=== PATIENT | female | born 1990 | race Caucasian/White ===

== ENCOUNTER 2019-05-29 10:28 | Outpatient (CLI) | payer MEDICAID ==
--- NOTE | 2019-05-29 14:09 | ULT ---
PELVIC ULTRASOUND: Date: 05/29/19 HISTORY: 28-year-old female, assess first trimester . TECHNIQUE: Multiplanar Mcdaniels scale sonographic imaging of the pelvis obtained with transabdominal imaging. The ov ron are assessed with color flow and spectral analysis. FINDINGS: The uterus measures 9.7 x 5.5 x 8.9 cm. The left ovary could not be visualized. Right ovary measures 2.5 x 1.9 x 2.6 cm and demonstrates normal blood flow. There is an intrauterine gestational sac present. A pole and a yolk sac are noted. heart rate is 161 beats/minute. There is no free fluid seen in the pelvis. There is a probable small subchorionic hemorrhage noted to the right and to the left of midline measu ring in the 7.0 mm and 1.6 cm range, respectively. There is a mildly complex right ovarian cystic lesion measuring 1.4 x 1.0 cm. Jensen-rump length is 1.4 cm, correlating with a 7 week/6 day gestation. Gestational sac diameter is 3 .4 cm, correlating with an 8 week/6 day gestation. Average age based on ultrasound is 8 weeks/3 days, with estimated date of delivery on 01/05/2020. IMPRESSION: Single intrauterine gestation as detailed above. Small subchorionic hemorrhage noted. POS: OFF
== END 2019-05-29 10:29 | disposition home or self-care (01) ==
LOC: BICULT 10:28
PROVIDERS: ATTEND Nurse Practitioner
DX: O09.91 Supervision of high risk pregnancy, unspecified, first trimester (principal); O20.9 Hemorrhage in early pregnancy, unspecified; Z3A.08 8 weeks gestation of pregnancy
CPT/HCPCS: 76856; 93976

== ENCOUNTER 2019-06-04 12:36 | Emergency (ER) | payer MEDICAID ==
[2019-06-04 13:52] LABS: #Eosinphils 0.1 thou/uL (0.0-0.7); #Lymphocytes 2.2 thou/uL (1.20-3.40); #Monocytes 1.3 thou/uL (0.11-0.59); #Neutrophils 10.3 thou/uL (1.40-6.50); %Basophils 0.3 % (0.0-1.0); %Eosinophils 0.9 % (0.0-10.0); %Lymphocytes 15.5 % (21.0-51.0); %Monocytes 9.3 % (0.0-10.0); Hemoglobin 14.4 g/dL (12.0-16.0); Mean Corpuscular HGB CONC 34.1 g/dL (32.0-36.0); Mean Corpuscular Hemoglobin 32.2 pg (27.0-31.0); Mean Corpuscular Volume 94.4 fL (78.0-98.0); Mean Platelet Volume 7.4 fL (7.4-10.4); Platelet Count 215 thou/uL (130-400); RBC Distribution Width 12.8 % (11.5-14.5); Red Blood Cell (RBC) Count 4.48 mill/uL (4.20-5.40); White Blood Cell (WBC) Count 13.9 thou/uL (4.8-10.8)
[2019-06-04 14:15] LABS: ALT (SGPT) 14 U/L (8-55); AST (SGOT) 14 U/L (5-34); Albumin 4.4 g/dL (3.5-5.0); Alkaline Phosphatase 48 U/L (40-150); Anion Gap 11 mmol/L (10-20); BUN (Urea Nitrogen) 7 mg/dL (7.0-18.7); Bilirubin, Total 0.3 mg/dL (0.2-1.2); Calc. Creatinine Clearance 0 mL/min (70-130); Calcium 9.6 mg/dL (7.8-10.44); Carbon Dioxide 26 mmol/L (22-29); Chloride 101 mmol/L (98-107); Estimated GFR-MDRD Greater than 90; Globulin 2.9 g/dL (2.4-3.5); Glucose 91 mg/dL (70-105); Protein, Total 7.3 g/dL (6.0-8.3); Sodium 134 mmol/L (136-145)
[2019-06-04 14:19] LABS: Bacteria/HPF 3+ HPF (None Seen); Bilirubin Negative (Negative); Blood, Urine 2+ (Negative); Clarity Clear (Clear); Glucose, Urine (Dipstick) Normal (Negative); Leukocyte Negative Leu/uL (Negative); Mucous/LPF 1+ LPF (<2+); Nitrite Negative (Negative); Protein, Urine (Dipstick) 20 mg/dL (Neg-Trace); Squamous Epithelial 0-3 HPF (0-3); Urobilinogen Normal mg/dL (Less than 2); WBC/HPF 0-3 HPF (0-3)
[2019-06-04 14:20] LABS: BHCG - Serum POSITIVE (NEGATIVE); Pregs Control Background? CLEAR/WHITE (CLR/WHITE); Pregs Control Bar Appear? YES (CONTROL BAR)
--- NOTE | 2019-06-04 14:29 | ULT ---
Ultrasound early obstetrical: HISTORY: 28-year-old female with first trimester vaginal bleeding FINDINGS: Intrauterine gestational sac. Yolk sac present. Embryonic pole present. What Cheer-rump length: 2.2 cm, 8 weeks 6 days. heart rate: 162 bpm No definite subchorionic hemorrhage. No free fluid in the cul-de-sac. Right ovary unremarkable. Left ovary not visualized. IMPRESSION: Live first trimester intrauterine gestation estimated to be 8 weeks 6 days gestational age. No defini te abnormality identified.
== END 2019-06-04 17:05 | disposition home or self-care (01) ==
LOC: ERS 12:36
DX: O20.9 Hemorrhage in early pregnancy, unspecified (principal); O99.341 Other mental disorders complicating pregnancy, first trimester; Z79.899 Other long term (current) drug therapy
CPT/HCPCS: 36415; 76856; 80053; 81003; 81015; 84702; 84703; 85025; 86900; 86901; 90384; 93976; 96372

== ENCOUNTER 2019-08-19 13:35 | Outpatient (CLI) | payer MEDICAID ==
--- NOTE | 2019-08-19 14:52 | ULT ---
OB ULTRASOUND: HISTORY: anatomy and cervical length. FINDINGS: A single live intrauterine gestation is seen with measurements corresponding to an estimated gestatio nal age of 20 weeks 3 days and MOISE of 01/03/2020. The estimated weight measures 323 g or 11 oz 34th percentile by Hadlock criteria). BIOMETRY: BPD: 4.86 cm (20 weeks 5 days) HC: 18.20 cm (20 weeks 5 days) AC: 14.91 cm (20 weeks 2 days) FL: 3.06 cm (19 weeks 4 days) heart rate measures 147 beats per minute. JOSE EDUARDO measures 12.7 cm. Placenta is posterior and to th e right without placenta previa. Cervical length measures 2.9 cm. Three vessel cord, cord insertion, kidneys, bladder, stomach, four chambered heart, lateral chaka tricles, cerebellum, spine and upper and lower extremities are visualized without definite anom alies. The lips and nose are not visualized due to position. IMPRESSION: Single live intrauterine of 20 weeks' 3 days' estimated gestational age and an estimated da te of delivery of 01/03/2020. POS: OFF
== END 2019-08-19 13:36 | disposition home or self-care (01) ==
LOC: BICULT 13:35
PROVIDERS: ATTEND Obstetrics & Gynecology
DX: O09.92 Supervision of high risk pregnancy, unspecified, second trimester (principal); Z3A.20 20 weeks gestation of pregnancy
CPT/HCPCS: 76805

== ENCOUNTER 2019-10-27 08:53 | Outpatient (CLI) | payer MEDICAID ==
--- NOTE | 2019-10-27 11:16 | ULT ---
ULTRASOUND ABDOMEN COMPLETE: DATE: 10/27/2019. HISTORY: A 29-year-old female in third trimester presents with right upper quadrant abdominal pain. FINDINGS: The gallbladder has normal wall thickness and has no evidence of gallstones or sludge. The hepatic e chogenicity is normal. The kidneys have normal echogenicity, and there is no hydronephrosis. There is no splenomegaly. There is no abdominal aortic aneurysm. No free fluid is identified. The inferi or vena cava is visualized. The pancreas is visualized, although ultrasound is relatively insensitiv e for pancreatic pathology compared to CT and MRI. The common duct is not visualized. IMPRESSION: 1. Common bile duct not visualized. 2. Otherwise, negative. jn [] POS: CET
== END 2019-10-27 08:54 | disposition home or self-care (01) ==
LOC: SCSULT 08:53
PROVIDERS: ATTEND Advanced Practice Midwife
DX: R10.11 Right upper quadrant pain (principal)
CPT/HCPCS: 93975

== ENCOUNTER 2019-12-03 11:58 | Day surgery (SDC) | payer OTHER ==
[2019-12-03 12:42] VITALS: BMI 23.9
[2019-12-03] MEDS ORDERED: hydrALAZINE 20 MG/ML VIAL SLOW IVP PRN (13:41)
[2019-12-03] MEDS ORDERED: NIFEdipine 10 MG CAP ONE ×2 (13:44→14:36)
[2019-12-03] MEDS ORDERED: NIFEdipine 10 MG CAP PO PRN (14:51)
[2019-12-03] MEDS ORDERED: NIFEdipine 10 MG CAP PO SCH ×2 (14:51→15:00)
--- NOTE | 2019-12-03 17:06 | ER ---
DATE OF SERVICE: 12/03/2019 PRESENTING COMPLAINT: Right rib pain at 35 weeks gestation. HISTORY OF PRESENT ILLNESS: Ms. Holman is a 29-year-old G2, P0, due date 01/04, 35 weeks gestation, who sees Dr. Rojas Espinosa. She has an approximately 1 month history of right rib pain. She has been evaluated as an outpatient with gallbladder ultrasound, x-rays, and the patient was felt to have more musculoskeletal. She presents today with the same complaint. Upon presentation, she was noted to have uterine irritability with a cervical exam of 1, 75, and -3, cephalic, bag of water intact, and she was observed with p.o. hydration and Procardia per protocol. RESEARCH PROGRAMMER HISTORY: As noted, negative drug screen. The patient transferred at 28 weeks. PAST MEDICAL HISTORY: Significant for anxiety and depression. PAST SURGICAL HISTORY: Denies. ALLERGIES: NONE. MEDICATIONS: vitamins and fluoxetine. SOCIAL HISTORY: Denies tobacco, alcohol, or drug abuse. FAMILY HISTORY: Noncontributory. REVIEW OF SYSTEMS: Noncontributory. PHYSICAL EXAMINATION: VITAL SIGNS: White female, blood pressure 124/75, pulse 110, respirations 18, temperature 98.1. HEENT: Within normal limits. LUNGS: Clear to auscultation bilaterally. HEART: Regular rhythm. ABDOMEN: Soft and nontender. Occasional indelible contractions noted every 3 to 5 minutes upon presentation with fundal height of 35 cm. The patient's tenderness over her ribs is in the same location that has been noted before. No CVA tenderness is noted. EXTREMITIES: No clubbing, cyanosis, eczema, or edema. CERVICAL: Exam is noted. monitoring revealed the patient was not appreciating approximately every 3 to 5 minutes. She had received Procardia, contractions decreased in intensity and frequency. heart rate tracing was category I. Repeat cervical exam was not performed. The patient was discharged home with ER precautions for labor, rupture of membranes, and will keep scheduled follow up in [address] Espinosa. Job ID: [id number]
== END 2019-12-03 16:31 | disposition home or self-care (01) ==
LOC: L&D/OP 11:58
PROVIDERS: ATTEND Obstetrics & Gynecology
DX: O99.89 Other specified diseases and conditions complicating pregnancy, childbirth and the puerperium (principal); R07.81 Pleurodynia; O99.343 Other mental disorders complicating pregnancy, third trimester; F41.9 Anxiety disorder, unspecified; F32.9 Major depressive disorder, single episode, unspecified; Z3A.35 35 weeks gestation of pregnancy; Z79.899 Other long term (current) drug therapy
CPT/HCPCS: 99284

== ENCOUNTER 2019-12-29 06:00 | Inpatient (IN) | payer OTHER ==
--- NOTE | 2019-12-28 13:04 | PDOC.LDHP ---
Labor and Delivery H&P Chief complaint: scheduled section HPI: Pt is scheduled for primary CS for primary HSV outbreak at 36 weeks. Current gestational age (weeks): 39 Due date: 01/05/20 Grav: 2 Para: 0 Current complications: other (HSV) Abnormal US findings: No Current medications: iron, other (valtrex 1gm q day) Previous surgical history: other Allergies/Adverse Reactions: Allergies Allergy/AdvReac Type Severity Reaction Status Date / Time No Known Allergies Allergy Verified 12/03/19 12:41 Social history: none - Physical Exam Vital signs reviewed and normal: yes General: resting Heart: RRR Lungs: CTAB Abdomen: gravid Extremeties: no edema FHT: category 1 - OB Labs Blood type: A RH: negative Antibody Screen: negative HIV: negative RPR: negative HEPSAg: negative 1 hour GCT: positive 3 hour GTT: 3hr WNL GBS: negative Urine drug screen: negative Rubella: immune - Assessment L&D Assessment: scheduled primary section - Plan Plan: admit to L&D, informed consent obtained, anesthesia consult for pain management -: Scheduled 1CS for 1 HSV in the third trimester.
[2019-12-29 06:14] VITALS: BMI 26.2
[2019-12-29] MEDS ORDERED: Butorphanol Tartrate 1 MG/ML VIAL SLOW IVP PRN (06:25)
[2019-12-29] MEDS ORDERED: Promethazine HCl 25 MG/ML VIAL IM PRN ×3 (06:25→14:51)
[2019-12-29] MEDS ORDERED: Acetaminophen 500 MG TAB PO PRN (06:25)
[2019-12-29] MEDS ORDERED: Bicitra 30 ML UDCUP PO SCH (06:25)
[2019-12-29] MEDS ORDERED: CEFAZOLIN 2 GM in Premix Bag 1 BAG IVPB SCH (06:25)
[2019-12-29] MEDS ORDERED: Ondansetron PF 4 MG/2 ML Vial IVP PRN ×4 (06:25→14:51)
[2019-12-29] MEDS ORDERED: Lactated Ringer's 1,000 ML IV SCH (06:25)
[2019-12-29] MEDS ORDERED: hydrALAZINE 20 MG/ML VIAL SLOW IVP PRN ×2 (06:25→09:46)
[2019-12-29 06:46] LABS: Hemoglobin 14.2 g/dL (12.0-16.0); Mean Corpuscular Hemoglobin 33.2 pg (27.0-31.0); Mean Corpuscular Volume 94.9 fL (78.0-98.0); Mean Platelet Volume 9.3 fL (7.4-10.4); Platelet Count 165 thou/uL (130-400); Red Blood Cell (RBC) Count 4.29 mill/uL (4.20-5.40); White Blood Cell (WBC) Count 14.2 thou/uL (4.8-10.8)
[2019-12-29] MEDS ORDERED: MORPHINE 5 MG/10 ML PF VIAL ONE (07:26)
[2019-12-29] MEDS ORDERED: PHENYLEPHRINE-NS 100 MCG/ML 10 ML SYRINGE ONE (07:27)
[2019-12-29] MEDS ORDERED: Oxytocin 10 UNITS/ML VIAL ONE (07:27)
[2019-12-29] MEDS ORDERED: EPHEDRINE 25 MG/5 ML SYRINGE ONE (07:27)
[2019-12-29] MEDS ORDERED: Ondansetron PF 4 MG/2 ML Vial ONE (07:27)
[2019-12-29 07:30] LABS: Syphilis Antibody Nonreactive (Nonreactive); Syphilis Antibody Index 0.04 S/CO (<1.00 Non-Reactive)
[2019-12-29] MEDS ORDERED: HYDROmorphone 2 MG/ML VIAL SLOW IVP PRN (07:32)
[2019-12-29] MEDS ORDERED: Ketorolac Tromethamine 30 MG/ML VIAL IVP PRN (07:32)
[2019-12-29] MEDS ORDERED: Ondansetron HCl/PF 4 MG/2 ML Vial IVP PRN (07:32)
[2019-12-29] MEDS ORDERED: Meperidine HCl/PF 25 MG/ML VIAL SLOW IVP PRN (07:32)
[2019-12-29] MEDS ORDERED: Naloxone HCl 0.4 mg/ml Vial IV PRN ×2 (07:32→14:51)
[2019-12-29] MEDS ORDERED: Promethazine HCl 25 MG SUPP PR PRN ×2 (07:32→14:51)
[2019-12-29] MEDS ORDERED: diphenhydrAMINE 50 MG/ML VIAL IVP PRN ×3 (07:32→14:51)
[2019-12-29] MEDS ORDERED: L&D-Morphine 4 MG/ML VIAL SLOW IVP PRN (07:32)
[2019-12-29] MEDS ORDERED: Naloxone HCl 0.4 mg/ml Vial IVP PRN ×4 (07:32→14:51)
[2019-12-29 07:35] LABS: HBSAg Index 0.23 S/CO (0-0.99); Hep B Surf Ag Non-Reactive S/CO (NonReactive)
[2019-12-29] MEDS ORDERED: Ketorolac Tromethamine 30 MG/ML VIAL IVP SCH (07:45)
[2019-12-29] MEDS ORDERED: Communication Order-Pharmacy FS SCH ×2 (07:45→15:00)
--- NOTE | 2019-12-29 08:30 | PDOC.OPDEL ---
OB Operative/Delivery Note Delivery Dr/Surgeon: Jesús Assist: Yoly Pre-Delivery Diagnosis: scheduled section (for 1 HSV) Procedure/Post Delivery Dx: primary low transverse CS Weeks gestation: 39 Anesthesia: spinal - Findings A Sex: male - Additional Findings/Plan Placenta delivered: spontaneous findings: low transverse hysterotomy without extension, normal uterus, normal tubes, normal ovaries Estimated blood loss: 600ml
[2019-12-29] MEDS ORDERED: Ketorolac Tromethamine 30 MG/ML VIAL ONE (08:55)
[2019-12-29] MEDS ORDERED: Meperidine HCl/PF 25 MG/ML VIAL ONE (09:29)
[2019-12-29] MEDS ORDERED: diphenhydrAMINE 25 MG CAP PO PRN (09:46)
[2019-12-29] MEDS ORDERED: Acetaminophen 325 MG TAB PO PRN (09:46)
[2019-12-29] MEDS ORDERED: Lanolin Ointment 7 GM TUBE TOP PRN (09:46)
[2019-12-29] MEDS ORDERED: Simethicone Chewable 80 MG TAB PO PRN (09:46)
[2019-12-29] MEDS ORDERED: NS / Oxytocin 40 units/1000ml 1,000 ML IV SCH (09:46)
[2019-12-29] MEDS ORDERED: Bisacodyl 10 MG SUPP PR PRN (09:46)
[2019-12-29] MEDS ORDERED: HYDROcodone/Acetaminophen 5/325 mg Tablet PO PRN (09:46)
[2019-12-29] MEDS ORDERED: Ferrous Sulfate 325 MG TAB PO SCH (10:30)
[2019-12-29] MEDS ORDERED: Docusate Calcium (SURFAK) 240 MG CAP PO SCH (10:30)
[2019-12-29] MEDS ORDERED: Prenatal Vitamin 1 TAB PO SCH (10:30)
--- NOTE | 2019-12-29 11:28 | OP ---
DATE OF PROCEDURE: 12/29/2019 PREOPERATIVE DIAGNOSES: 1. Thirty-nine weeks. 2. 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 POSTOPERATIVE DIAGNOSES: 1. Thirty-nine weeks. 2. 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 PROCEDURES PERFORMED: Primary low transverse section. SCHOOL BUSINESS MANAGER: Samira Frederick MD. ANESTHESIA: Spinal. COMPLICATIONS: None. ESTIMATED BLOOD LOSS: 600 mL. OPERATIVE FINDINGS: 1. Low-transverse hysterotomy without extension. 2. Vigorous male infants, Apgars and weight pending at the time of dictation. 3. Normal-appearing uterus, tubes, and ovaries bilaterally. 4. Hysterotomy without extension and hemostatic after closure. 5. Normal-appearing placenta and fundus firm after delivery. DESCRIPTION OF PROCEDURE: The patient was taken back to the OR with IV fluids running. When she was in the OR, she received spinal anesthesia and then was placed in dorsal supine position with a left lateral tilt. A Frey catheter was placed using sterile technique and 2 g of Ancef were administered. The patient was then prepped and draped in routine fashion for section. The surgeons were gowned and gloved. Anesthesia was tested and found to be adequate. A Pfannenstiel skin incision was made with scalpel. A skin incision was carried down through the subcutaneous tissue to the fascia. Once the fascia was reached, it was incised in the midline and extended superolaterally using curved Myers scissors. Lyndon clamps were placed at the superior border of the fascia, which was sharply and bluntly dissected off the rectus abdominis muscles. In similar fashion, they were placed at the inferior border of the fascia, which was dissected down towards the pubic symphysis. The rectus muscles were bluntly in the midline. The peritoneum was bluntly entered and stretched. An Jaleel retractor was placed into the abdominal cavity for retraction visualization and protection of the wound. A bladder flap was created using Metzenbaum scissors and the bladder was dissected away from the planned hysterotomy site. A low-transverse hysterotomy was made with a scalpel. The Haney maneuver was used to extend the incision. Clear fluid was noted. The was delivered through the incision without difficulty. Nose and mouth were suctioned. The cord was doubly clamped and cut. The infant was handed off to special care nurse in attendance. Cord blood was collected. The placenta was delivered. The uterus was exteriorized, massaged to firm and cleared of clot and debris. Uterus was then returned to the abdominal cavity. Hysterotomy was closed in a running locked fashion using Monocryl suture. After the hysterotomy was closed, it was inspected and no areas of bleeding were noted. The hysterotomy and paracolic gutters were copiously irrigated and suctioned dry. The hysterotomy was inspected again and no bleeding was noted. The Jaleel retractor was removed from the abdominal cavity. The rectus muscles and fascia were inspected and no bleeding were noted. The rectus fascia was reapproximated with PDS suture from corner to corner in a running fashion. Subcutaneous layer was irrigated and dried. Any small areas of bleeding were controlled with cauterization. Plain gut suture was used to reapproximate the subcutaneous tissue in an interrupted fashion and subcuticular layer was closed with 4-0 Monocryl and dressed with Dermabond dressing. The patient tolerated the procedure well. There were no complications, and the counts were correct x2. Job ID: [id number]
[2019-12-29] MEDS ORDERED: Ibuprofen 800 MG TAB PO SCH (14:00)
[2019-12-29] MEDS: Ketorolac Tromethamine 30 MG/ML VIAL IVP PRN ×2 (16:03→21:44)
[2019-12-29] MEDS: Ferrous Sulfate 325 MG TAB PO SCH (19:49)
[2019-12-29] MEDS: Docusate Calcium (SURFAK) 240 MG CAP PO SCH (20:53)
[2019-12-30] MEDS ORDERED: Sodium Chloride 0.9% 10 ML ONE (06:20)
[2019-12-30] MEDS: Ketorolac Tromethamine 30 MG/ML VIAL IVP PRN (06:24)
[2019-12-30 06:49] LABS: Hemoglobin 12.2 g/dL (12.0-16.0); Mean Corpuscular HGB CONC 34.1 g/dL (32.0-36.0); Mean Corpuscular Hemoglobin 33.2 pg (27.0-31.0); Mean Corpuscular Volume 97.4 fL (78.0-98.0); Mean Platelet Volume 8.6 fL (7.4-10.4); Platelet Count 143 thou/uL (130-400); RBC Distribution Width 12.1 % (11.5-14.5); Red Blood Cell (RBC) Count 3.66 mill/uL (4.20-5.40); White Blood Cell (WBC) Count 14.6 thou/uL (4.8-10.8)
[2019-12-30] MEDS: Ferrous Sulfate 325 MG TAB PO SCH (08:32)
[2019-12-30] MEDS: Docusate Calcium (SURFAK) 240 MG CAP PO SCH ×2 (08:45→21:18)
[2019-12-30] MEDS: Prenatal Vitamin 1 TAB PO SCH (08:46)
[2019-12-30] MEDS ORDERED: Adacel (T-DAP) 0.5 ML SYRINGE IM ONE (09:00)
--- NOTE | 2019-12-30 10:44 | PDOC.PP ---
Post Progress Note Post Day #: 1 Subjective: minimal pain, tolerating regular diet, no lochia/min lochia noted, baby iN NICU PO intake tolerated: yes Flatus: yes Ambulation: yes Vital Signs (12 hours) Temp Pulse Resp BP Pulse Ox 12/30/19 07:40 98.6 F 85 20 108/63 99 12/30/19 04:00 97.9 F 84 16 126/66 99 12/30/19 00:00 97.9 F 86 14 125/63 98 Weight Weight 183 lb - Physical Examination General: NAD Respiratory: non-labored breathing Abdominal: no distention Skin: CS incision dry & intact, no rash Neurological: no gross focal deficits Psychiatric: A&Ox3 (flat affect) Result Diagrams: 12/30/19 06:21 Additional Labs: Post Labs Blood Type A NEGATIVE 12/29/19 06:27 Hep Bs Antigen Non-Reactive S/CO (NonReactive) 12/29/19 06:27 (1) S/P primary low transverse Code(s): Z98.891 - HISTORY OF UTERINE SCAR FROM PREVIOUS SURGERY Status: Acute (2) Term delivered Code(s): O80 - ENCOUNTER FOR FULL-TERM UNCOMPLICATED DELIVERY Status: Acute (3) Genital HSV Code(s): A60.00 - HERPESVIRAL INFECTION OF UROGENITAL SYSTEM, UNSPECIFIED Status: Acute - Assessment/Plan POD1 doing well, no concerns. Baby in NICU. Discussed continued post care.
[2019-12-30] MEDS: HYDROcodone/Acetaminophen 5/325 mg Tablet PO PRN ×3 (12:38→21:18)
[2019-12-30] MEDS: Ibuprofen 800 MG TAB PO SCH ×2 (15:12→21:18)
[2019-12-31] MEDS: Ibuprofen 800 MG TAB PO SCH (06:48)
[2019-12-31 08:25] VITALS: BP 125/69; TEMP 98.2
[2019-12-31] MEDS: Ferrous Sulfate 325 MG TAB PO SCH (09:17)
[2019-12-31] MEDS: Docusate Calcium (SURFAK) 240 MG CAP PO SCH (09:19)
[2019-12-31] MEDS: Prenatal Vitamin 1 TAB PO SCH (09:19)
--- NOTE | 2019-12-31 10:20 | PDOC.PP ---
Post Progress Note Post Day #: 2 Subjective: DOing very well, nursing and supplementing, pain controlled w oral meds. Baby doing well at bedside. PO intake tolerated: yes Flatus: yes Ambulation: yes Vital Signs (12 hours) Temp Pulse Resp BP Pulse Ox 12/31/19 08:24 98.2 F 86 20 125/69 99 Weight Weight 183 lb - Physical Examination General: NAD Respiratory: non-labored breathing Abdominal: no distention Skin: CS incision dry & intact Neurological: no gross focal deficits Psychiatric: A&Ox3, normal affect Result Diagrams: 12/30/19 06:21 Additional Labs: Post Labs Blood Type A NEGATIVE 12/29/19 06:27 Hep Bs Antigen Non-Reactive S/CO (NonReactive) 12/29/19 06:27 (1) S/P primary low transverse Code(s): Z98.891 - HISTORY OF UTERINE SCAR FROM PREVIOUS SURGERY Status: Acute (2) Term delivered Code(s): O80 - ENCOUNTER FOR FULL-TERM UNCOMPLICATED DELIVERY Status: Acute (3) Genital HSV Code(s): A60.00 - HERPESVIRAL INFECTION OF UROGENITAL SYSTEM, UNSPECIFIED Status: Acute - Assessment/Plan POD2 doing well, desires DC home and baby is set for DC today. Pain med use reviewed.
== END 2019-12-31 13:30 | disposition home or self-care (01) | DRG 788 ==
LOC: EEVIPCON 06:00 → L&D 06:00 → 3SE 11:42
PROVIDERS: ADMIT Obstetrics & Gynecology; ATTEND Obstetrics & Gynecology
PROC: 10D00Z1 Extraction of Products of Conception, Low, Open Approach (ICD-10-PCS; principal; 2019-12-29)
DX: O98.52 Other viral diseases complicating childbirth (principal); Z3A.39 39 weeks gestation of pregnancy; Z37.0 Single live birth; A60.00 Herpesviral infection of urogenital system, unspecified
CPT/HCPCS: 36415; 51702; 85027; 85461; 86780; 86850; 86900; 86901; 87340; 90384; 96372; J1200; J1885; J2175; J2274; J2405; J2590